=== PATIENT | female | born 1945 | race Caucasian/White ===

== ENCOUNTER 2017-01-20 15:36 | Observation (INO) | payer OTHER, BC ==
[~2017-01-20] VITALS: Ht 177.8 cm; Wt 65.1 kg
[2017-01-20 16:27] LABS: BASOPHIL % 0.8 % (0-2); PLATELET COUNT 216 x10^3mcL (130-400); RED CELL DISTRIBUTION WIDTH 13.3 % (11.5-14.5)
[2017-01-20 16:33] LABS: CALCIUM 9.5 mg/dL (8.5-10.1); CARBON DIOXIDE 25.4 mmol/L (21-32); CHLORIDE SERUM 107 mmol/L (98-107); CREATININE SERUM 0.9 mg/dL (0.6-1.0); GLUCOSE SERUM 144 mg/dL (74-106); POTASSIUM SERUM 3.8 mmol/L (3.5-5.1); SODIUM SERUM 143 mmol/L (136-145)
[2017-01-20 16:39] LABS: ALBUMIN 3.8 g/dL (3.4-5.0); ALKALINE PHOSPHATASE 100 U/L (46-116); ALT/SGPT 35 U/L (14-59); AST/SGOT 33 U/L (15-37); BILIRUBIN TOTAL 0.33 mg/dL (0.20-1.00); LIPASE 117 IU/L (73-393); TOTAL PROTEIN, SERUM 6.9 g/dL (6.4-8.2); TRIGLYCERIDES 76 mg/dL (<150)
[2017-01-20 16:40] LABS: CHOLESTEROL 205 mg/dL (<200); CHOLESTEROL/HDL RATIO 1.8; HDL CHOLESTEROL 114 mg/dL (40-60)
[2017-01-20 16:55] LABS: T3 TOTAL 0.95 ng/mL
[2017-01-20 17:04] LABS: FREE T4 0.92 ng/dL (0.76-1.46); FREE THYROXINE INDEX 3.1 ug/dL (1.4-4.5); T4(THYROXINE) 8.8 ug/dL (4.7-13.3)
[2017-01-20 19:19] LABS: microscopic required? NO
[2017-01-20 19:30] LABS: UA SPECIFIC GRAVITY <=1.005 (1.005-1.035); urine erythrocyte NEGATIVE (NEGATIVE)
[2017-01-20 21:21] LABS: MAGNESIUM 2.1 mg/dL (1.8-2.4)
[2017-01-20 21:26] LABS: AMPHETAMINE QUAL UR NONE DETECTED (NEG <=1000)
[2017-01-20 21:57] VITALS: BP 105/65
[2017-01-20 22:01] VITALS: Ht 177.8 cm; Wt 65.1 kg
[2017-01-21 05:59] VITALS: BP 106/43
[2017-01-21 06:48] LABS: CALCIUM 8.6 mg/dL (8.5-10.1); CARBON DIOXIDE 27.3 mmol/L (21-32); CHLORIDE SERUM 110 mmol/L (98-107); CREATININE SERUM 0.8 mg/dL (0.6-1.0); GLUCOSE SERUM 92 mg/dL (74-106); POTASSIUM SERUM 4.2 mmol/L (3.5-5.1); SODIUM SERUM 142 mmol/L (136-145)
[2017-01-21 09:28] VITALS: BP 110/47
[2017-01-21 13:49] VITALS: BP 135/52
[2017-01-21] MEDS ORDERED: METAMUCIL0.52 GM PO (15:33)
[2017-01-21] MEDS ORDERED: NEXIUM20 MG PO (15:34)
[2017-01-21] MEDS ORDERED: CARAFATE1 GM PO (15:35)
[2017-01-21] MEDS ORDERED: LEVAQUIN750 MG PO (15:48)
[2017-01-21 15:56] VITALS: BP 135/52
== END 2017-01-21 16:47 | disposition home or self-care (01) | DRG 392 ==
LOC: ED 15:36 → DU 20:13 → MU 20:13 → DU 20:13 → MU 01-21 12:35
PROVIDERS: Family Medicine; Specialist; ADMIT Family Medicine
DX: A08.4 Viral intestinal infection, unspecified (principal); E87.2 Acidosis; E86.0 Dehydration; R73.9 Hyperglycemia, unspecified; E03.9 Hypothyroidism, unspecified; E83.39 Other disorders of phosphorus metabolism; Z98.84 Bariatric surgery status; Z68.22 Body mass index [BMI] 22.0-22.9, adult
CPT/HCPCS: 83880; 84439; C9113; G0378; J1885; J1956; J3010; J3420; J3490; J7030; Q9967